=== PATIENT | male | born 1960 | race Caucasian/White ===

== ENCOUNTER 2018-06-16 07:47 | Day surgery (SDC) | payer OTHER ==
[2018-06-12 15:50] VITALS: BMI 24.7
[2018-06-16] MEDS ORDERED: FLUTICASONE PROP 0.05% 16 GM NASAL SPRAY NS SCH (10:15)
--- NOTE | 2018-06-16 10:18 | PN ---
Progress Note (short form) - Note Progress Note: 57M s/p surgical arthroscopy left knee POD #0. -Pain control: Percocet & Naproxen PRN. -Incentive spirometry. -No chemical DVT PPx. -WBAT LLE. -Keep dressing clean & dry. -d/c dressing on Tuesday; cover incision sites with waterproof Band-Aids; OK to resume showering thereafter. -Cane vs crutches if needed. -f/u in [facility] [place] [facility] on 06/22/2017; call for appointment; . Shane Ryan MD (Orthopaedic Surgery).
--- NOTE | 2018-06-16 10:18 | OP ---
Operative Note - Note: Operative Date: 06/16/18 Pre-Operative Diagnosis: Chondrocalcinosis left knee Operation: 1. Surgical arthroscopy left knee. 2. Intra-articular left knee injection Findings: Left Knee: 1. Chondrocalcinosis 2. Tricompartment crystalline arthropathy 3. Grade 4 chondromalacia patella 4. Grade 3 chondromalacia trochlear sulcus 5. Grade 3 chondromalacia left tibial plateau Post-Operative Diagnosis: Same as Pre-op Surgeon: Shane Ryan Hand Coper: Librado Ryan Anesthesiologist/STUDENT DEVELOPMENT DEAN: Brooke Moody Anesthesia: General Estimated Blood Loss (mls): 0 Fluid Volume Replaced (mls): 1,000 (Crystalloid) Operative Report Dictated: Yes
[2018-06-16] MEDS ORDERED: fentaNYL CITRATE 250 MCG/5 ML VIAL ONE (10:21)
[2018-06-16] MEDS ORDERED: MIDAZOLAM HCL 2 MG/2 ML SINGLE DOSE VIAL ONE (10:21)
[2018-06-16] MEDS ORDERED: PROPOFOL 20 ML ONE (10:21)
[2018-06-16] MEDS ORDERED: LIDOCAINE HCL/PF 2% SDV 5ML VIAL ONE ×2 (10:22→10:55)
[2018-06-16] MEDS ORDERED: methylPREDNISolone ACET (DEPO) 40 MG/1 ML VIAL ONE (10:43)
[2018-06-16] MEDS ORDERED: BUPIVACAINE HCL/EPINEPHRINE/PF 30 ML VIAL IJ ONE (10:43)
[2018-06-16] MEDS ORDERED: ceFAZolin SODIUM 1 GM VIAL ONE (10:54)
[2018-06-16] MEDS ORDERED: DEXAMETHASONE SOD PHOSPHATE 4 MG/1 ML VIAL ONE (10:55)
[2018-06-16] MEDS ORDERED: LIDOCAINE HCL 2% JELLY (5 ML/TUBE) ONE (10:55)
[2018-06-16] MEDS ORDERED: ONDANSETRON 4 MG/2 ML VIAL ONE ×2 (10:55→12:01)
[2018-06-16] MEDS ORDERED: KETOROLAC TROMETHAMINE 30 MG/1 ML VIAL ONE (10:55)
[2018-06-16] MEDS ORDERED: ePHEDrine SULFATE 50 MG/1 ML AMPULE ONE (10:59)
[2018-06-16] MEDS ORDERED: methylPREDNISolone ACET (DEPO) 80 MG/1 ML VIAL IM ONE (11:31)
[2018-06-16] MEDS ORDERED: BUPIVACAINE 0.25% /EPI 1:200,000 10 ML VIAL INF ONE (11:31)
[2018-06-16] MEDS ORDERED: ONDANSETRON 4 MG/2 ML VIAL IVPUSH PRN (12:23)
[2018-06-16] MEDS ORDERED: oxyCODONE HCL 5 MG TABLET PO PRN (12:23)
[2018-06-16] MEDS ORDERED: LACTATED RINGERS SOLUTION 1,000 ML IV SCH (12:30)
[2018-06-16] MEDS ORDERED: oxyCODONE HCL 5 MG TABLET ONE (13:40)
[2018-06-16 13:55] VITALS: PULSE 65; TEMP 98
[2018-06-16 14:06] VITALS: BP 122/75
[2018-06-17] MEDS ORDERED: ATENOLOL 25 MG TABLET (FP) PO SCH (10:00)
[2018-06-17] MEDS ORDERED: PATIENT'S OWN MEDICATION (NON-FORMULARY) (Lisinopril/Hydrochlorothiazide [Lisinopril-Hctz PO SCH (10:00)
[2018-06-17] MEDS ORDERED: ASPIRIN 81 MG CHEWABLE TABLETS PO SCH (10:00)
--- NOTE | 2018-06-19 09:10 | OP ---
Date of Operation: 06/16/2018 Surgeon: Shane Ryan MD Top And Seat Cover Fitter: Librado Ryan MD Pre-Operative Diagnosis: 1. Left knee chondrocalcinosis 2. Crystalline arthropathy left knee 3. Questionable left lateral meniscus instability Post-Operative Diagnosis: Left knee: 1. Chondrocalcinosis 2. Crystalline arthropathy 3. No lateral meniscus instability 4. Chondromalacia patella (Grade 4) 5. Chondromalacia trochlear sulcus (Grade 3) 6. Chondromalacia lateral tibial plateau (Grade 3) Surgical Procedure: Left knee: 1. Surgical arthroscopy with removal of loose bodies; 89960. 2. Intra-articular (large joint) injection with 10cc 0.25% Marcaine and 2cc depomedrol (40mg/mL); . Anesthesia: General (LMA). Position: Supine. Incision: Standard anterolateral knee arthroscopy portals. Tourniquet Pressure: 250mmHg. Tourniquet Time: 23 minutes. Estimated Blood Loss: 0cc. Intravenous Fluid: 1L crystalloid. Specimens: None. Drains: None. Complications: None. Urine output: None. Bacteriology: None. Transfusions: None. Closure: 3-0 Nylon. Indications: The patient was indicated for a surgical arthroscopy of the left knee with debridement to facilitate improved motion and mobilization, to prevent complications associated with a sedentary lifestyle, and to treat the crystalline arthropathy of his knee. The patient was identified in the holding area by his armband. A long discussion was held with the patient regarding the risks, benefits and alternatives of the above-named procedure. Risks include but are not limited to: pain, bleeding, infection, damage to surrounding structures (including nerves, blood vessels, skin, ligaments, tendons and bone), wound complications, need for further surgery, blood clots, myocardial infarction, pulmonary embolism, anaesthesia complications, compartment syndrome, limb loss, limp, loss of function, and . Benefits as mentioned above. Alternatives include no surgery. All questions were answered. The patient and his family understood and agreed to the procedure. Informed consent was obtained, witnessed and verified. The patients correct operative limb - the left lower extremity - was marked, and the patient was taken to the operating room after being seen by the anesthesia and nursing staff. Procedure: The patient was brought into the operating room, placed on the OR table and secured with a safety strap. Consent and the operative site was again verified with the patient and nursing and anaesthesia staff. Anaesthesia was then administered without complication. 2g IV Ancef were administered. A time out was done led by me, the attending surgeon. The patient was positioned with bony prominences well padded, and a tourniquet was placed proximally and set to 250mmHg. The operative limb was prepped in standard sterile fashion using betadine prep & scrub, wiped off with alcohol, and then DuraPrep applied. The operative limb was then free draped. Time out was again done, the limb was exsanguinated using an Esmarch, the tourniquet was inflated, and the case began. Surface anatomy of the knee was drawn, marking the patella, patellar tendon, and medial & lateral joint lines. With the knee flexed to 45 degrees, a standard anterolateral arthroscopy portal was made using an 11 blade. A blunt trocar was then inserted into the knee at the same angle as the incision. The blunt trocar was then slipped into the suprapatellar pouch as the knee was slowly extended. The trocar was removed through its overlying canula, and the arthroscope was inserted in its place. The fluid inflow, which had already been primed, was then attached to the canula along with the outflow suction tubing. The knee was then insufflated with normal saline solution. The suprapatellar pouch was then inspected with evidence of diffuse synovitis. Numerous loose bodies associated with chondrocalcinosis and crystalline arthropathy were seen. The lateral retro-patellar surfaces revealed Outerbridge Grade 4 chondromalacia. The trochlear groove demonstrated Outerbridge Grade 3 chondromalacia with deep fissures visible. The patellofemoral articulation appeared otherwise congruous. Next, the arthroscope was delivered into the medial gutter of the knee as the knee was slowly flexed. No loose bodies were seen. With gentle valgus force applied to the knee, the arthroscope was slipped into the medial compartment. The cartilage of the medial femoral condyle and medial tibial plateau appeared healthy. The anterior horn and body of the medial meniscus appeared intact, however, aggregations of chondrocalcinosis were seen embedded in the meniscus itself. Next, the arthroscope was delivered into the intercondylar notch. The ACL was visualized and appeared intact. The PCL was not visualized. The left lower extremity was was placed in figure-4 position as gentle varus stress was applied to the knee. The arthroscope was delivered into the lateral compartment of the knee. The meniscus appeared healthy with no evidence of lateral instability. The cartilage of the lateral femoral condyle appeared healthy. Outerbridge Grade 3 chondromalacia of the lateral tibial plateau was seen with deep fissuring. The arthroscope was then delivered into the lateral gutter of the knee where no loose bodies were seen. The arthroscope was then returned to the suprapatellar pouch as the knee was gently extended. The knee was irrigated with 2-3L of normal saline solution. All fluid was suctioned out of the knee. An intra-articular injection consisting of 10mL of 0.25% Marcaine with 2mL of Depo-Medrol (40 mg/mL) was injected into the knee. Hemostasis was assured, and the incision was closed primarily using 3-0 nylon sutures in figure-8 fashion. Xeroform and a sterile, compressive dressing was applied. The tourniquet was released at a final time of 23 minutes. The sponge and needle counts were correct at the end of the case and I the attending was present and scrubbed throughout the case. The patient was then transferred to the recovery room in stable condition, as per the anesthesiology team, having tolerated the procedure well. Intra-operative photographs were captured using the arthroscope at numerous steps throughout the case. MD MARK Beard/[id number] MTDD
== END 2018-06-16 14:10 | disposition home or self-care (01) ==
LOC: FASU 07:47
PROVIDERS: ATTEND Orthopaedic Surgery Orthopaedic Surgery of the Spine
PROC: 0SCD4ZZ Extirpation of Matter from Left Knee Joint, Percutaneous Endoscopic Approach (ICD-10-PCS; principal; 2018-06-16 10:33)
DX: M11.262 Other chondrocalcinosis, left knee (principal); M12.862 Other specific arthropathies, not elsewhere classified, left knee; M94.262 Chondromalacia, left knee
CPT/HCPCS: 94760